=== PATIENT | male | born 1960 | race Caucasian/White ===

== ENCOUNTER 2018-02-22 21:48 | Emergency (ER) | payer BC, SELFPAY ==
--- NOTE | 2018-02-22 21:56 | ED_ITS ---
HPI - Abdominal Pain General Chief Complaint: Abdominal Pain Stated Complaint: ABD PAIN Time Seen by Provider: 02/22/18 21:55 Source: patient Mode of arrival: ambulatory Limitations: no limitations History of Present Illness HPI narrative: 58-year-old male here for evaluation of left-sided abdominal pain. He states that it started earlier today. Seems to be intermittent. He is from [facility] of the local [facility] and was evaluated there and was told that he potentially could have diverticulitis. He came here by private vehicle for further evaluation. No urinary symptoms. No change in bowel. No skin changes. No prior abdominal surgeries. No vomiting. Has not tried anything for symptoms prior to arrival Related Data Home Medications Medication Instructions Recorded Confirmed levothyroxine 175 mcg PO DAILY 02/22/18 02/22/18 Previous Rx's Medication Instructions Recorded hydrocodone-acetaminophen [[place]] 1 tab PO Q4-6H PRN #14 tab 02/23/18 ondansetron 4 mg PO Q6-8H PRN #14 tab 02/23/18 Allergies Allergy/AdvReac Type Severity Reaction Status Date / Time gluten AdvReac Verified 02/22/18 22:02 Review of Systems Constitutional Denies fever(s) ENT Ears, Nose, Mouth, and Throat: Denies dizziness Cardiovascular Denies chest pain, Denies syncope and Denies dyspnea Respiratory Denies dyspnea Gastrointestinal Gastrointestinal: Reports abdominal pain, Reports nausea and Denies vomiting Genitourinary Denies dysuria and Denies flank pain Musculoskeletal Denies myalgias and Denies arthralgias Integumentary/Breasts Denies lesions and Denies rash Neurologic Denies dizziness and Denies syncope Hematologic/Lymphatic Comments: Not on anticoagulation [facility] Medical History Healthy adult (Acute) Surgical History No pertinent past surgical history (Acute) Social History marital status: lives independently: Yes Exam Initial Vital Signs Initial Vital Signs: Vital Signs Temperature 97.9 F 02/22/18 22:00 Pulse Rate 64 02/22/18 22:00 Respiratory Rate 18 02/22/18 22:00 Blood Pressure 143/93 H 02/22/18 22:00 Pulse Oximetry 99 02/22/18 22:00 Const General: cooperative, healthy appearing, well developed, well groomed and No acute distress Orientation: alert, awake and oriented x3 HENMT Head: normal to inspection Resp Effort & Inspection: normal respiratory effort Auscultation: clear to auscultation bilaterally Cardio Rate: regular rate Rhythm: regular rhythm GI Inspection: non-distended Palpation: soft, No firm and tender (Left abdomen without rebound or guarding) Skin Lesions: no lesions Rashes: no rashes Neuro General: alert, awake and oriented x3 Extrem General: normal to inspection and capillary refill normal Psych Appearance: grossly normal and well kempt Course Orders Ordered: ED Orders 02/22/18 22:19 CT abdomen pelvis w con Stat 02/22/18 22:32 Complete Blood Count AUTO DIFF Stat Comprehensive Metabolic Panel Stat Lipase Stat Discontinued Medications Hydrocodone Bitart/Acetaminophen (Vicodin Prepack) 1 bottle MISC SEEINSTR ONE Stop: 02/23/18 00:57 Last Admin: 02/23/18 01:09 Dose: 1 bottle Sodium Chloride (Normal Saline 0.9%) 1,000 mls @ 1,000 mls/hr IV BOLUS ONE Stop: 02/22/18 23:17 Last Infusion: 02/23/18 00:12 Dose: 0 mls/hr Admin: 02/22/18 22:37 Dose: 1,000 mls/hr Lidocaine HCl 5.4 ml/ Sodium (Chloride) 55.4 mls @ 332.4 mls/hr IV NOW ONE Stop: 02/22/18 23:44 Last Infusion: 02/23/18 00:57 Dose: 0 mls/hr Admin: 02/23/18 00:40 Dose: 332.4 mls/hr Ketorolac Tromethamine (Toradol) 30 mg IV NOW ONE Stop: 02/22/18 23:44 Last Admin: 02/23/18 00:40 Dose: 30 mg Morphine Sulfate (Morphine) 4 mg IV NOW ONE Stop: 02/22/18 22:52 Last Admin: 02/22/18 23:01 Dose: 4 mg Morphine Sulfate (Morphine Sulfate) 4 mg IV NOW ONE Stop: 02/22/18 23:22 Last Admin: 02/22/18 23:27 Dose: 4 mg Ondansetron HCl (Zofran) 4 mg IV NOW ONE Stop: 02/22/18 22:52 Last Admin: 02/22/18 23:01 Dose: 4 mg Ondansetron HCl (Zofran Odt Prepack) 1 bottle MISC SEEINSTR ONE Stop: 02/23/18 00:57 Last Admin: 02/23/18 01:08 Dose: 1 bottle Vital Signs - 8 hr 02/22/18 22:00 02/22/18 23:39 02/23/18 01:18 Temperature 97.9 F Pulse Rate 64 66 68 Respiratory Rate 18 20 16 Blood Pressure 143/93 H 122/56 L Blood Pressure [Left Arm] 144/69 H Pulse Oximetry 99 98 99 MDM - Abdominal Pain Lab Data Attestation: I reviewed the patient's lab results. Result diagrams: 02/22/18 22:32 02/22/18 22:32 Lab Results 02/22/18 02/22/18 Range/Units 22:32 22:32 WBC 9.4 (4.5-11.0) X10^3/uL RBC 4.73 (4.5-5.9) X10^6/uL Hgb 15.1 (13.5-17.5) g/dL Hct 43.4 (41-53) % MCV 91.8 (80-100) fL MCH 31.9 (26-34) PG MCHC 34.7 (30-36) % RDW 13.4 (11.6-14.8) % Plt Count 146 L (150-400) X10^3/uL Neut % (Auto) 88.0 H (50-75) % Lymph % (Auto) 7.1 L (25-40) % [place] % (Auto) 4.3 (3-14) % Eos % (Auto) 0.1 L (2-4) % Baso % (Auto) 0.5 (0-2) % Neut # (Auto) 8300 H (4633-1215) /uL Sodium 139 (137-145) mmol/L Potassium 3.6 (3.4-5.1) mmol/L Chloride 98 (98-107) mmol/L Carbon Dioxide 24 (22-32) mmol/L BUN 17 (9-20) mg/dL Creatinine 0.70 (0.66-1.25) mg/dL Estimated GFR > 60.0 (>60) mL/min BUN/Creatinine Ratio 24.3 H (6-22) Glucose 118 H (70-100) mg/dL Calcium 8.4 (8.4-10.2) mg/dL Total Bilirubin 0.8 (0.2-1.3) mg/dL AST 24 (17-59) IU/L ALT 28 (21-72) IU/L Alkaline Phosphatase 51 (38-126) U/L Total Protein 7.1 (6.3-8.2) g/dL Albumin 4.3 (3.5-5.0) g/dL Globulin 2.8 (1.7-4.1) g/dL Albumin/Globulin Ratio 1.5 (1.0-2.8) Lipase 35 (23-300) U/L Point of care testing: Urine Dip Bedside Urine Glucose 100 mg/dl Bedside Urine Bilirubin - Negative Bedside Urine Ketone ++ 40 Urine Specific [place] 1.020 Bedside Urine Occult Blood +/- Bedside Urine pH 6.0 Bedside Urine Protein - Negative Bedside Urine Urobilinogen - Negative Bedside Urine Nitrite - Negative Bedside Urine Leukocytes - Negative Esterase Imaging Data CT scan - abdomen: Radiologist's impression: Mild left hydronephrosis. 3.2 mm stone in the left distal ureter. No other acute findings. MDM Narrative Medical decision making narrative: Patient with a 3.2 mm stone in the left distal ureter. This does correspond with the symptoms that he is having. No signs of urinary tract infection. His creatinine is unremarkable. Patient had a return of his symptoms. He was given medications through the IV which greatly improved the symptoms. We did discuss return precautions. He was sent home with symptomatic treatment. Patient expressed understanding and agreement with plan. Discharge Plan Departure Patient Disposition: Home Clinical Impression: Renal colic on left side Discharge Date/Time: 02/23/18 01:18 Interventions: ED Discharge Assessment Last Done: 02/23/18 01:18 Instructions: Kidney Stones -- Adult Activity Restrictions/Additional Instructions: Take the medication as directed. Return to the emergency department for any fevers, pain that is not controlled with the medications or the inability to urinate. I do recommend he follow up with your primary care doctor when he returns home. Prescriptions: New hydrocodone-acetaminophen [[place]] 5-325 mg tablet 1 tab PO Q4-6H PRN (Reason: pain) Qty: 14 RF: 0 ondansetron 4 mg tablet,disintegrating 4 mg PO Q6-8H PRN (Reason: nausea and vomiting) Qty: 14 RF: 0 No Action levothyroxine 175 mcg Tablet 175 mcg PO DAILY RF: 0
[2018-02-22 22:00] VITALS: BP 143/93; PULSE 64; RESP 18; TEMP 36.6; O2SAT 99
--- NOTE | 2018-02-22 22:19 | DI.CT.S_ITS ---
PROCEDURE: CT ABDOMEN PELVIS W CON INDICATIONS: Left-sided abdominal pain, nausea TECHNIQUE: After the administration of intravenous contrast, 5 mm thick sections acquired from the diaphragm to the symphysis. 5 mm coronal and sagittal reformats were acquired. For radiation dose reduction, the following was used: automated exposure control, adjustment of mA and/or kV according to patient size. COMPARISON: None. FINDINGS: Image quality: Excellent. ABDOMEN: Lung bases: Minimal bibasilar atelectasis. Lung bases are otherwise clear. Heart size is normal. Solid organs: Liver is normal in size and enhancement. Gallbladder is normal in CT appearance. Biliary system is non dilated. Pancreas enhances normally. Spleen demonstrates presence of several small hypodensities measuring up to 1.0 cm in maximal dimension. These are incompletely evaluated but likely represent small hemangiomas. No adrenal nodules. The right kidney demonstrates normal size and enhancement, without hydronephrosis or nephrolithiasis. There is hydronephrosis of the left kidney with surrounding perinephric inflammation and subtle, diffusely decreased enhancement relative to the right kidney. There is also mild left hydroureter with a 3 mm distal left ureteral stone identified just proximal to the ureterovesicular junction. Minimal left periureteral stranding is also present. Peritoneum and bowel: Moderate colonic diverticulosis without acute diverticulitis. No asymmetric bowel wall thickening, however the distal colon is decompressed and limits evaluation. Bowel loops demonstrate normal wall thickness and caliber. No free fluid or air. Nodes and vessels: No retroperitoneal or mesenteric adenopathy by size criteria. Aorta and inferior vena cava are normal in size. Miscellaneous: No ventral hernias. Tiny fat containing umbilical hernia without acute inflammation. PELVIS: Genitourinary: Bladder wall thickness is normal. Miscellaneous: No inguinal hernias or adenopathy. Bones: No acute fracture. No acute compression fractures of the visualized spine. Multilevel spondylosis of the lower thoracic and lumbar spine. There is a 2.1 x 1.7 x 3.5 cm intraosseous lesion within the left iliac bone medially which is predominantly sclerosis with surrounding lucency. No evidence for adjacent osseous destruction or cortical disruption. No periosteal reaction noted. IMPRESSION: There is a 3 mm distal left ureteral stone at the left ureterovesicular junction with associated hydroureteronephrosis and stranding compatible with obstructive uropathy. Recommend evaluating for concurrent obstructive uropathy. Scattered colonic diverticulosis without acute diverticulitis. Indeterminate 3.5 cm, nondestructive sclerotic lesion within the medial left iliac bone which warrants further imaging with dedicated radiographs of the pelvis. Multiple small splenic hypodensities measuring up to 1.0 cm in size, likely representing small hemangiomas. Dictated by: Ernesto Hampton M.D. on 02/23/2018 at 8:33 Approved by: Ernesto Hampton M.D. on 02/23/2018 at 8:54
[2018-02-22] MEDS: SODIUM CHLORIDE 0.9% 1,000 ML 1000 ML IV (22:37)
[2018-02-22 22:41] LABS: Add Manual Diff / Slide Review NO; Basophils Percent Auto 0.5 % (0-2); Eosinophils Percent Auto 0.1 % (2-4); Hematocrit 43.4 % (41-53); Hemoglobin 15.1 g/dL (13.5-17.5); Lymphocytes Percent Auto 7.1 % (25-40); Mean Corpuscular HGB Conc 34.7 % (30-36); Mean Corpuscular Hemoglobin 31.9 PG (26-34); Mean Corpuscular Volume 91.8 fL (80-100); Monocytes Percent Auto 4.3 % (3-14); Neutrophils Absolute Auto 8300 /uL (1500-7000); Platelet Count 146 X10^3/uL (150-400); Red Blood Cell Count 4.73 X10^6/uL (4.5-5.9); Red Cell Distribution Width 13.4 % (11.6-14.8); White Blood Cell Count 9.4 X10^3/uL (4.5-11.0)
[2018-02-22 22:46] LABS: Alanine Aminotransferase 28 IU/L (21-72); Albumin 4.3 g/dL (3.5-5.0); Albumin Globulin Ratio 1.5 (1.0-2.8); Alkaline Phosphatase 51 U/L (38-126); Aspartate Aminotransferase 24 IU/L (17-59); BUN Creatinine Ratio 24.3 (6-22); Bilirubin Total 0.8 mg/dL (0.2-1.3); Blood Urea Nitrogen 17 mg/dL (9-20); Calcium 8.4 mg/dL (8.4-10.2); Carbon Dioxide 24 mmol/L (22-32); Chloride 98 mmol/L (98-107); Estimated Glomerular Filt Rate > 60.0 mL/min (>60); Globulin 2.8 g/dL (1.7-4.1); Glucose 118 mg/dL (70-100); HEMOLYSIS < 15 (0-50); Lipase 35 U/L (23-300); Potassium 3.6 mmol/L (3.4-5.1); Sodium 139 mmol/L (137-145); Total Protein 7.1 g/dL (6.3-8.2)
[2018-02-22] MEDS: ONDANSETRON 4 MG/2 ML INJ IV (23:01)
[2018-02-22] MEDS: MORPHINE 4 MG/ML INJ IV (23:01)
[2018-02-22] MEDS: MORPHINE 5 MG/ML INJ 4 MG IV (23:27)
[2018-02-22 23:39] VITALS: BP 144/69; PULSE 66; RESP 20; O2SAT 98
[2018-02-23] MEDS: KETOROLAC 60 MG/2 ML VIAL 30 MG IV (00:40)
[2018-02-23] MEDS: LIDOCAINE 2% 5.4 ML in SODIUM CHLORIDE 0.9% 50 ML 332.4 ML IV (00:40)
[2018-02-23] MEDS: ONDANSETRON 4 MG ODT PREPACK 1 BOTTLE MISC (01:08)
[2018-02-23] MEDS: HYDROCODONE/ACET 5/325 PREPACK 1 BOTTLE MISC (01:09)
[2018-02-23 01:18] VITALS: BP 122/56; PULSE 68; RESP 16; O2SAT 99
== END 2018-02-23 01:18 | disposition home or self-care (01) ==
PROVIDERS: Emergency Provider Emergency Medicine
DX: N23 Unspecified renal colic (principal)
CPT/HCPCS: 36591; 74177; 80053; 81003; 83690; 85025; 96361; 96374; 96375; 96376; 99283; 99284; J1885; J2270; J2405; Q9967